=== PATIENT | female | born 1960 | race Caucasian/White ===

== ENCOUNTER 2021-07-01 03:20 | Emergency (ER) | payer OTHER ==
[~2021-07-01] VITALS: Ht 170.2 cm; Wt 90.7 kg
[2021-07-01] MEDS ORDERED: LORAZEPAM 0.5 MG TABLET PO ONE (03:30)
[2021-07-01] MEDS ORDERED: LORAZEPAM 0.5 MG TABLET ONE (03:31)
--- NOTE | 2021-07-01 03:35 | NUR ---
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 PATIENT IS A/O X 4, RR EVEN AND UNLABORED, NO SOB NOTED. PATIENT CONNECTED TO TELECOMMUNICATIONS ADMINISTRATOR AND POX.
--- NOTE | 2021-07-01 04:30 | NUR ---
PATIENT RESTING IN BED. PATIENT VSS. NO ACUTE DISTRESS NOTED. WILL CONTINUE TO MONITOR.
[2021-07-01 05:35] VITALS: BP 121/56
--- NOTE | 2021-07-01 05:41 | NUR ---
Patient discharged to home in stable condition. Written and verbal after care instructions given. Patient verbalizes understanding of instruction.
== END 2021-07-01 05:41 | disposition home or self-care (01) ==
LOC: ER 03:20
DX: I12.0 Hypertensive chronic kidney disease with stage 5 chronic kidney disease or end stage renal disease (principal); E11.22 Type 2 diabetes mellitus with diabetic chronic kidney disease; N18.6 End stage renal disease; F41.9 Anxiety disorder, unspecified; Z99.2 Dependence on renal dialysis; Z60.2 Problems related to living alone

== ENCOUNTER 2021-07-27 12:03 | Emergency (ER) | payer SELFPAY ==
[~2021-07-27] VITALS: Ht 157.5 cm; Wt 64.9 kg
--- NOTE | 2021-07-27 12:18 | NUR ---
TO ER BED 3, C/O RT HIP PAIN P/S 8/ S/P FIXING BED THIS MORNING, AAO3, BREATHING EVEN AND NON LABORED.
--- NOTE | 2021-07-27 12:36 | NUR ---
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
[2021-07-27 12:49] LABS: CALCIUM, SERUM 9.5 mg/dL (8.5-10.1); POTASSIUM 4.5 mmol/L (3.5-5.1)
[2021-07-27 12:56] LABS: CREATININE 9.6 mg/dL (0.6-1.3)
[2021-07-27] MEDS ORDERED: ACETAMINOPHEN 325 MG TABLET PO ONE (14:00)
[2021-07-27] MEDS ORDERED: ACETAMINOPHEN 325 MG TABLET ONE (14:07)
--- NOTE | 2021-07-27 14:22 | NUR ---
PATIENT A/OX4, BREATHING EVEN AND UNLABORED, NO SOB NOTED. ABLE TO AMBULATE WITH STEADY GAIT. Patient discharged to home in stable condition. Written and verbal after care instructions given. Patient verbalizes understanding of instruction.
[2021-07-27 14:23] VITALS: BP 138/60
== END 2021-07-27 14:23 | disposition home or self-care (01) ==
LOC: ER 12:04
DX: M25.551 Pain in right hip (principal); I12.0 Hypertensive chronic kidney disease with stage 5 chronic kidney disease or end stage renal disease; E11.22 Type 2 diabetes mellitus with diabetic chronic kidney disease; N18.6 End stage renal disease; Z60.2 Problems related to living alone
CPT/HCPCS: 36415; 71045-TC; 73502; 80048-TC